=== PATIENT | male | born 1980 | race Caucasian/White ===

== ENCOUNTER 2016-10-27 09:26 | Observation (INO) | payer SELFPAY ==
[2016-10-27] VITALS (7 sets, daily range): BP systolic 119–135; BP diastolic 70–75; PULSE 53–79; RESP 16–20; TEMP 98.1–98.6; O2SAT 97–98
[~2016-10-27] VITALS: Ht 182.9 cm; Wt 129.0 kg
[~2016-10-27 09:26] MED LIST: LISI-587 PO
[2016-10-27] MEDS ORDERED: ASPIRIN 81 MG CHEW TAB PO ONE (09:45)
[2016-10-27] MEDS ORDERED: SODIUM CHLOR 0.9% 1000 ML INJ 1,000 ML IV ONE (09:45)
[2016-10-27] MEDS ORDERED: SODIUM CHLORIDE 0.9% FLUSH 10 ML FLUSH IVF PRN (09:45)
--- NOTE | 2016-10-27 09:48 | PD ---
HPI Chief Complaint: chest pain Time Seen by Provider: 09:37 Travel History International Travel<30 days: No Contact w/Intl Traveler<30days: No History of Present Illness HPI Patient is a 36-year-old male with history of hypertension, hyperlipidemia, coronary disease, history of NV when he was 24 years old, ho presents to emergency with complaints of chest pain. Patient reports that he began to have chest pain around 2 AM this morning. Patient reports that the chest pain is located to his left chest, reports that it is sharp and stabbing and radiates to his back. Patient reports that it difficult for him to take a deep breath this chest pain. Reports that he felt short of breath and diaphoretic with the symptoms. Patient denies any nausea or vomiting, he has history of NV in the past. Patient reports that the symptoms got better throughout the morning, reports that he went to work and had return of chest pain and shortness of breath and decided to come to the emergency room. Patient did take a baby aspirin this morning along with all his antihypertensives. 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 Patient reports that he has never had a cardiac catheter, reports that he was told that he has mitral as well as tricuspid valve regurgitation. Patient also reports strong family history of NV, reports that his father had 13 MIs as well as 9 CVAs in the past. 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) High Cholesterol: Yes Chest Pain: Yes Diminished Hearing: No Hypertension: Yes Past Surgical History Surgical History: No Previous Surgery Family History Family Myocardial Infarction: Yes Family Hypercholesterolemia: Yes Social History Alcohol Use: No Tobacco Use: No Substance Use: No Allergies-Medications (Allergen,Severity, Reaction): Coded Allergies: Zithromax (Unverified Allergy, Unknown, TOLD CHILD, 08/15/14) Reported Meds & Prescriptions Reported Meds & Active Scripts Active Zestoretic 20/25 (Lisinopril/Hctz 20 mg/25 mg) 20 mg/25 mg Tab 1 Tab PO DAILY 30 Days Review of Systems General / Constitutional: No: Fever Eyes: No: Visual changes HENT: No: Headaches Cardiovascular: Positive: Chest Pain or Discomfort, Diaphoresis Respiratory: Positive: Shortness of Breath Gastrointestinal: No: Abdominal Pain Genitourinary: No: Dysuria Musculoskeletal: No: Pain Skin: No Rash Neurologic: No: Weakness Psychiatric: No: Depression Endocrine: No: Polydipsia Hematologic/Lymphatic: No: Easy Bruising Physical Exam Narrative GENERAL: No acute distress, nontoxic SKIN: Focused skin assessment warm/dry. HEAD: Atraumatic. Normocephalic. EYES: Pupils equal and round. No scleral icterus. No injection or drainage. ENT: No nasal bleeding or discharge. Mucous membranes pink and moist. NECK: Trachea midline. No JVD. CARDIOVASCULAR: Regular rate and rhythm. No murmur appreciated. RESPIRATORY: No accessory muscle use. Clear to auscultation. Breath sounds equal bilaterally. GASTROINTESTINAL: Abdomen soft, non-tender, nondistended. Hepatic and splenic margins not palpable. MUSCULOSKELETAL: No obvious deformities. No clubbing. No cyanosis. No edema. NEUROLOGICAL: Awake and alert. No obvious cranial nerve deficits. Motor grossly within normal limits. Normal speech. PSYCHIATRIC: Appropriate mood and affect; insight and judgment normal. Data Data Last Documented VS Vital Signs Date Time Temp Pulse Resp B/P Pulse Ox O2 Delivery O2 Flow Rate FiO2 10/27/16 09:44 73 132/70 Room Air 10/27/16 09:44 97 10/27/16 09:41 20 10/27/16 09:30 98.2 Orders B-Type Natriuretic Peptide (10/27/16 09:39) Ckmb (Isoenzyme) Profile (10/27/16 09:39) Complete Blood Count With Diff (10/27/16 09:39) Comprehensive Metabolic Panel (10/27/16 09:39) D-Dimer (10/27/16 09:39) Magnesium (Mg) (10/27/16 09:39) Prothrombin Time / Inr (Pt) (10/27/16 09:39) Act Partial Throm Time (Ptt) (10/27/16 09:39) Troponin I (10/27/16 09:39) Lipase (10/27/16 09:39) Chest, Single Ap (10/27/16 09:39) Ecg Monitoring (10/27/16 09:39) Bilateral Bp Monitoring (10/27/16 09:39) Iv Access Insert/Monitor (10/27/16 09:39) Oximetry (10/27/16 09:39) Aspirin Chew (Aspirin Chew) (10/27/16 09:45) Sodium Chloride 0.9% Flush (Ns Flush) (10/27/16 09:45) Nitroglycerin Sl (Nitrostat Sl) (10/27/16 09:45) Sodium Chlor 0.9% 1000 Ml Inj (Ns 1000 M (10/27/16 09:45) Ct Pulmonary Angiogram (10/27/16 10:31) CKMB (10/27/16 09:50) CKMB% (10/27/16 09:50) Iohexol 350 Inj (Omnipaque 350 Inj) (10/27/16 11:45) Labs Laboratory Tests Test 10/27/16 09:50 White Blood Count 5.0 TH/MM3 Red Blood Count 5.00 MIL/MM3 Hemoglobin 15.1 GM/DL Hematocrit 44.0 % Mean Corpuscular Volume 88.0 FL Mean Corpuscular Hemoglobin 30.3 PG Mean Corpuscular Hemoglobin 34.4 % Concent Red Cell Distribution Width 13.1 % Platelet Count 163 TH/MM3 Mean Platelet Volume 9.2 FL Neutrophils (%) (Auto) 54.4 % Lymphocytes (%) (Auto) 28.8 % Monocytes (%) (Auto) 15.3 % Eosinophils (%) (Auto) 1.2 % Basophils (%) (Auto) 0.3 % Neutrophils # (Auto) 2.7 TH/MM3 Lymphocytes # (Auto) 1.4 TH/MM3 Monocytes # (Auto) 0.8 TH/MM3 Eosinophils # (Auto) 0.1 TH/MM3 Basophils # (Auto) 0.0 TH/MM3 CBC Comment DIFF FINAL Differential Comment Prothrombin Time 10.7 SEC Prothromb Time International 1.0 RATIO Ratio Activated Partial 27.3 SEC Thromboplast Time D-Dimer Quantitative (PE/DVT) 0.52 MG/L FEU Sodium Level 138 MEQ/L Potassium Level 3.7 MEQ/L Chloride Level 106 MEQ/L Carbon Dioxide Level 24.7 MEQ/L Anion Gap 7 MEQ/L Blood Urea Nitrogen 16 MG/DL Creatinine 0.90 MG/DL Estimat Glomerular Filtration 96 ML/MIN Rate Random Glucose 147 MG/DL Calcium Level 8.8 MG/DL Magnesium Level 2.1 MG/DL Total Bilirubin 0.3 MG/DL Aspartate Amino Transf 39 U/L (AST/SGOT) Alanine Aminotransferase 83 U/L (ALT/SGPT) Alkaline Phosphatase 70 U/L Total Creatine Kinase 108 U/L Creatine Kinase MB 3.1 NG/ML Troponin I LESS THAN 0.02 NG/ML B-Type Natriuretic Peptide 13 PG/ML Total Protein 7.2 GM/DL Albumin 3.6 GM/DL Lipase 127 U/L MDM Medical Decision Making Medical Screen Exam Complete: Yes Emergency Medical Condition: Yes Interpretation(s) EKG at 0936: No sinus rhythm at 63 bpm, QT/QTc 396/403, no acute ST or T-wave changes Differential Diagnosis Differential includes ACS, arrhythmia, PE, aortic dissection, electrolyte abnormality, pneumothorax Narrative Course 36-year-old male who presents to emergency room with complaints of chest pain. Patient reports that he has history of coronary artery disease, he has never had a cardiac catheterization in the past. Reports history of hypertension, hyperlipidemia, he does take a baby aspirin today and did take all of his medications today. Patient reports that chest began around 2 AM this morning and has been persistent but less severe. Patient was placed on a radiographer cardiac catheterization upon arrival to the emergency room. Lab work including cardiac enzymes ordered. X-ray chest ordered. Sublingual nitroglycerin ordered to see if this helps with his chest pain symptoms. Patient with resolution of chest pain after 1 sl nitro Vital Signs Date Time Temp Pulse Resp B/P Pulse Ox O2 Delivery O2 Flow Rate FiO2 10/27/16 09:44 73 132/70 Room Air 10/27/16 09:44 97 Room Air 10/27/16 09:41 73 20 132/70 97 Room Air 10/27/16 09:30 98.2 73 20 132/70 97 Laboratory Tests Test 10/27/16 09:50 White Blood Count 5.0 TH/MM3 (4.0-11.0) Red Blood Count 5.00 MIL/MM3 (4.50-5.90) Hemoglobin 15.1 GM/DL (13.0-17.0) Hematocrit 44.0 % (39.0-51.0) Mean Corpuscular Volume 88.0 FL (80.0-100.0) Mean Corpuscular Hemoglobin 30.3 PG (27.0-34.0) Mean Corpuscular Hemoglobin 34.4 % Concent (32.0-36.0) Red Cell Distribution Width 13.1 % (11.6-17.2) Platelet Count 163 TH/MM3 (150-450) Mean Platelet Volume 9.2 FL (7.0-11.0) Neutrophils (%) (Auto) 54.4 % (16.0-70.0) Lymphocytes (%) (Auto) 28.8 % (9.0-44.0) Monocytes (%) (Auto) 15.3 % (0.0-8.0) Eosinophils (%) (Auto) 1.2 % (0.0-4.0) Basophils (%) (Auto) 0.3 % (0.0-2.0) Neutrophils # (Auto) 2.7 TH/MM3 (1.8-7.7) Lymphocytes # (Auto) 1.4 TH/MM3 (1.0-4.8) Monocytes # (Auto) 0.8 TH/MM3 (0-0.9) Eosinophils # (Auto) 0.1 TH/MM3 (0-0.4) Basophils # (Auto) 0.0 TH/MM3 (0-0.2) CBC Comment DIFF FINAL Differential Comment Prothrombin Time 10.7 SEC (9.8-11.6) Prothromb Time International 1.0 RATIO Ratio Activated Partial 27.3 SEC Thromboplast Time (24.3-30.1) D-Dimer Quantitative (PE/DVT) 0.52 MG/L FEU (0.00-0.50) Sodium Level 138 MEQ/L (136-145) Potassium Level 3.7 MEQ/L (3.5-5.1) Chloride Level 106 MEQ/L (98-107) Carbon Dioxide Level 24.7 MEQ/L (21.0-32.0) Anion Gap 7 MEQ/L (5-15) Blood Urea Nitrogen 16 MG/DL (7-18) Creatinine 0.90 MG/DL (0.60-1.30) Estimat Glomerular Filtration 96 ML/MIN (>89) Rate Random Glucose 147 MG/DL (74-106) Calcium Level 8.8 MG/DL (8.5-10.1) Magnesium Level 2.1 MG/DL (1.5-2.5) Total Bilirubin 0.3 MG/DL (0.2-1.0) Aspartate Amino Transf 39 U/L (15-37) (AST/SGOT) Alanine Aminotransferase 83 U/L (12-78) (ALT/SGPT) Alkaline Phosphatase 70 U/L (45-117) Total Creatine Kinase 108 U/L (39-308) Creatine Kinase MB 3.1 NG/ML (0.5-3.6) Troponin I LESS THAN 0.02 NG/ML (0.02-0.05) B-Type Natriuretic Peptide 13 PG/ML (0-100) Total Protein 7.2 GM/DL (6.4-8.2) Albumin 3.6 GM/DL (3.4-5.0) Lipase 127 U/L (73-393) Last Impressions Chest X-Ray 10/27/16 0987 Signed Impressions: Service Date/Time: Thursday, October 27, 2016 09:47 - CONCLUSION: No acute disease. Isaac Rodriguez MD Patient with resolution of chest pain. Will obs to chest pain unit Diagnosis Primary Impression: Chest pain Qualified Code: R07.9 - Chest pain, unspecified type Admitting Information Admitting Physician Requests: Observation Aundrea Tomlinson DO Oct 27, 2016 09:48
[2016-10-27] MEDS: NITROGLYCERIN 0.4 MG SL 25 TABS/BTL SL SCH ×3 (09:55→10:26)
[2016-10-27 10:07] LABS: AUTOMATED NEUTROPHIL # 2.7 TH/MM3 (1.8-7.7); BASOPHIL % 0.3 % (0.0-2.0); EOSINOPHIL # 0.1 TH/MM3 (0-0.4); EOSINOPHIL % 1.2 % (0.0-4.0); HEMO FLAGS DIFF FINAL; LYMPH % 28.8 % (9.0-44.0); LYMPHOCYTE # 1.4 TH/MM3 (1.0-4.8); MEAN CORPUSCULAR HEMOGLOBIN 30.3 PG (27.0-34.0); MEAN CORPUSCULAR HGB CONC 34.4 % (32.0-36.0); MONO % 15.3 % (0.0-8.0); NEUT % 54.4 % (16.0-70.0); PLATELET COUNT 163 TH/MM3 (150-450); RED CELL DISTRIBUTION WIDTH 13.1 % (11.6-17.2)
--- NOTE | 2016-10-27 10:07 | RADRPT ---
EXAM DATE/TIME: 10/27/2016 09:47 [facility] COMPARISON: No previous studies available for comparison. INDICATIONS : Chest pain. MEDICAL HISTORY : Myocardial infarction. mitral and tricuspid regurgitation, high blood pressure ENCOUNTER: Initial ACUITY: 1 day PAIN SCORE: 2/10 LOCATION: Bilateral chest FINDINGS: A single view of the chest demonstrates the lungs to be symmetrically aerated without evidence of mas s, infiltrate or effusion. The cardiomediastinal contours are unremarkable. Osseous structures are intact. CONCLUSION: No acute disease. Isaac Rodriguez MD on October 27, 2016 at 10:05 Board Certified Radiologist. This report was verified electronically.
[2016-10-27 10:22] LABS: APTT (PATIENT) 27.3 SEC (24.3-30.1); PROTHROMBIN TIME - PATIENT 10.7 SEC (9.8-11.6)
[2016-10-27 10:29] LABS: ANION GAP 7 MEQ/L (5-15); AST (GOT) 39 U/L (15-37); BICARBONATE 24.7 MEQ/L (21.0-32.0); BLOOD UREA NITROGEN 16 MG/DL (7-18); CHLORIDE 106 MEQ/L (98-107); GLOMERULAR FILTRATION RATE 96 ML/MIN (>89); MAGNESIUM 2.1 MG/DL (1.5-2.5); POTASSIUM 3.7 MEQ/L (3.5-5.1); SODIUM (NA) 138 MEQ/L (136-145)
[2016-10-27 10:30] LABS: ALT (GPT) 83 U/L (12-78)
[2016-10-27 10:34] LABS: ALKALINE PHOSPHATASE 70 U/L (45-117); CREATINE KINASE 108 U/L (39-308); TOTAL BILIRUBIN ADULT 0.3 MG/DL (0.2-1.0)
[2016-10-27 10:47] LABS: CKMB 3.1 NG/ML (0.5-3.6)
[2016-10-27] MEDS ORDERED: IOHEXOL 350 MG/ML 10 ML VIAL (for RAD DIAG) IV ONE (11:45)
--- NOTE | 2016-10-27 11:55 | RADRPT ---
EXAM DATE/TIME: 10/27/2016 11:37 [facility] COMPARISON: No previous studies available for comparison. INDICATIONS : Sub sternal chest pain starting today IV CONTRAST: 74 cc Omnipaque 350 (iohexol) IV RADIATION DOSE: 23.18 CTDIvol (mGy) MEDICAL HISTORY : Cardiovascular disease. Hypertension. SURGICAL HISTORY : None. ENCOUNTER: Initial ACUITY: 1 day PAIN SCALE: 2/10 LOCATION: chest TECHNIQUE: Volumetric scanning of the chest was performed using a pulmonary embolism protocol MIP images were re constructed. Using automated exposure control and adjustment of the mA and/or kV according to patien t size, radiation dose was kept as low as reasonably achievable to obtain optimal diagnostic quality images. DICOM format image data is available electronically for review and comparison. Follow-up recommendations for incidentally detected pulmonary nodules are based at a minimum on nodul e size and patient risk factors according to Fleischner Society Guidelines. FINDINGS: PULMONARY ARTERIES: No filling defects are seen in the pulmonary arteries through the segmental level. LUNGS: Scattered posterior bibasilar atelectasis is noted. There is no alveolar consolidation or pneumothora x . Tiny calcified granulomas are noted bilaterally. No concerning pulmonary nodule is visualized. PLEURAE: There is no pleural thickening or pleural effusion. MEDIASTINUM: There is good visualization of the great vessels of the middle mediastinum. Cardiomegaly. No evidenc e of concerning mediastinal or hilar adenopathy/mass. Calcified granulomatous lymph nodes are noted w ithin the right hilum. MUSCULOSKELETAL: Within normal limits for patient age. MISCELLANEOUS: The visualized upper abdominal organs demonstrate no acute abnormality. CONCLUSION: 1. No evidence of pulmonary embolism. 2. Scattered posterior bibasilar atelectasis. 3. Cardiomegaly. 4. Granulomatous changes within the lungs bilaterally and right hilum. Freddy Murillo MD on October 27, 2016 at 11:49 Board Certified Radiologist. This report was verified electronically.
[2016-10-27] MEDS ORDERED: ALPRAZolam 0.25 MG TAB PO PRN (14:30)
[2016-10-27] MEDS ORDERED: ONDANSETRON HCL 4 MG/2 ML VIAL IV PRN (14:30)
[2016-10-27] MEDS ORDERED: SODIUM CHLORIDE 0.9% FLUSH 10 ML FLUSH IV FLUSH PRN (14:30)
[2016-10-27] MEDS ORDERED: ACETAMINOPHEN 500 MG CPLT PO PRN (14:30)
[2016-10-27] MEDS ORDERED: ACETAMINOPHEN/HYDROcodone 325 MG/7.5 MG TAB PO PRN (14:30)
[2016-10-27 14:43] LABS: CREATINE KINASE 102 U/L (39-308)
--- NOTE | 2016-10-27 16:13 | HHI.HP ---
[facility] Primary Care Physician Jeff Luther DO Chief Complaint Chest pain History of Present Illness This is a 36-year-old male that presents to the ED via ambulance with a complaint of chest discomfort. He states he first had an episode about 2:00 this morning. It woke him up. Is a sharp stabbing discomfort to left side of his chest. It lasted 15-20 minutes. He had associated shortness of breath and diaphoresis no nausea. He went back to sleep. Then this morning he went to work. While he was at work he developed the same type discomfort. He was and 89 out of 10. He also felt weak. He decided drive home. His saw him and felt that he was pale. She called 911. He states he was having the discomfort as he arrived in the ED as a 2-3 out of 10. He was given subluminal nitroglycerin which resolved the discomfort and has not reoccurred. Patient states that he had a myocardial infarction he was 24 years of age. He states he was told it was a mild heart attack. Denies ever having a cardiac catheterization. States that he had a stress test about 11 years ago and that it was okay. 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 Review of Systems General: Patient denies fevers, chills recent, and recent travel HEENT: Patient denies headache, sore throat, difficulty swallowing. Cardiovascular: Has the chest discomfort as mentioned above. Denies sensation of heart beating rapidly or irregularly. No syncope. He was diaphoretic. Respiratory: He was short of breath. Denies inspirational chest discomfort. Denies coughing wheezing or hemoptysis. GI: Patient denies nausea, vomiting, diarrhea, abdominal pain, bloody stools. Musculoskeletal: Patient denies joint pain or edema. Denies calf pain or edema. Neurovascular: Patient denies numbness, tingling, weakness in extremities. Denies headache. Endocrine: Denies polyuria and polydipsia. Hematologic: Denies easy bruising. Skin: Denies rash or itching. Past Family Social History Allergies: Coded Allergies: Zithromax (Unverified Allergy, Unknown, TOLD CHILD, 08/15/14) Past Medical History Hypertension. States he had a myocardial infarction age 24. Denies hyperlipidemia and diabetes. Past Surgical History Denies prior surgeries. Reported Medications Reported Meds & Active Scripts Active Zestoretic (Lisinopril/Hctz 20 mg/25 mg) 20 mg/25 mg Tab 1 Tab PO DAILY 30 Days Active Ordered Medications Current Medications Medications (Trade) Dose Ordered Sig/Ilsa Route Start Time Stop Time Status Last Admin (NS Flush) 2 ml UNSCH PRN IV FLUSH 10/27/16 14:30 (NS Flush) 2 ml BID IV FLUSH 10/27/16 21:00 (Tylenol) 500 mg Q4H PRN PO 10/27/16 14:30 (Kent 7.5-325 Mg) 1 tab Q4H PRN PO 10/27/16 14:30 (Zofran Inj) 4 mg Q6H PRN IV 10/27/16 14:30 (Protonix) 40 mg DAILY PO 10/27/16 15:00 (Aspirin) 325 mg DAILY PO 10/28/16 09:00 (Xanax) 0.25 mg Q8H PRN PO 10/27/16 14:30 Non-Formulary Medication 1 tab DAILY PO 10/28/16 09:00 UNV Family History States his father has had multiple myocardial infarctions. Social History Patient is a nonsmoker. Denies illicit drugs. Has occasional alcohol. Physical Exam Vital Signs Vital Signs Date Time Temp Pulse Resp B/P Pulse Ox O2 Delivery O2 Flow Rate FiO2 10/27/16 15:49 98.6 53 16 119/70 97 10/27/16 14:37 98.6 53 16 119/70 97 10/27/16 14:07 123/72 97 10/27/16 09:44 73 132/70 Room Air 10/27/16 09:44 97 Room Air 10/27/16 09:41 73 20 132/70 97 Room Air 10/27/16 09:30 98.2 73 20 132/70 97 Physical Exam GENERAL: This is a well-nourished, well-developed patient, in no apparent distress. Patient speaks in clear complete sentences. Patient is pleasant. HEENT: Head is atraumatic and normocephalic. Neck is supple without lymphadenopathy and trachea is midline. No JVD or carotid bruits. CARDIOVASCULAR: Regular rate and rhythm without murmurs, gallops, or rubs. RESPIRATORY: Clear to auscultation. Breath sounds equal bilaterally. No wheezes , rales, or rhonchi. Chest wall is nontender. No use of accessory muscles. GASTROINTESTINAL: Abdomen is nontender, nondistended. Abdomen soft. No obvious pulsatile mass or bruit. No CVA tenderness. Strong femoral pulses bilaterally. Normal bowel sounds in all quadrants. MUSCULOSKELETAL: Patient is moving upper and lower extremities freely. No calf tenderness or edema, no Homans sign. Strong pulses in upper and lower extremities. NEUROLOGICAL: Patient is alert and oriented. Cranial nerves 2-12 are grossly intact. No focal deficits and speech is clear. SKIN: No rash and turgor is normal. Laboratory Laboratory Tests Test 10/27/16 10/27/16 09:50 13:55 White Blood Count 5.0 Red Blood Count 5.00 Hemoglobin 15.1 Hematocrit 44.0 Mean Corpuscular Volume 88.0 Mean Corpuscular Hemoglobin 30.3 Mean Corpuscular Hemoglobin 34.4 Concent Red Cell Distribution Width 13.1 Platelet Count 163 Mean Platelet Volume 9.2 Neutrophils (%) (Auto) 54.4 Lymphocytes (%) (Auto) 28.8 Monocytes (%) (Auto) 15.3 Eosinophils (%) (Auto) 1.2 Basophils (%) (Auto) 0.3 Neutrophils # (Auto) 2.7 Lymphocytes # (Auto) 1.4 Monocytes # (Auto) 0.8 Eosinophils # (Auto) 0.1 Basophils # (Auto) 0.0 CBC Comment DIFF FINAL Differential Comment Prothrombin Time 10.7 Prothromb Time International 1.0 Ratio Activated Partial 27.3 Thromboplast Time D-Dimer Quantitative (PE/DVT) 0.52 Sodium Level 138 Potassium Level 3.7 Chloride Level 106 Carbon Dioxide Level 24.7 Anion Gap 7 Blood Urea Nitrogen 16 Creatinine 0.90 Estimat Glomerular Filtration 96 Rate Random Glucose 147 Calcium Level 8.8 Magnesium Level 2.1 Total Bilirubin 0.3 Aspartate Amino Transf 39 (AST/SGOT) Alanine Aminotransferase 83 (ALT/SGPT) Alkaline Phosphatase 70 Total Creatine Kinase 108 102 Creatine Kinase MB 3.1 Troponin I LESS THAN 0.02 LESS THAN 0.02 B-Type Natriuretic Peptide 13 Total Protein 7.2 Albumin 3.6 Lipase 127 Result Diagram: 10/27/16 0950 10/27/16 0950 Imaging Last [address] Angiography 10/27/16 1031 Signed Impressions: Service Date/Time: Thursday, October 27, 2016 11:37 - CONCLUSION: 1. No evidence of pulmonary embolism. 2. Scattered posterior bibasilar atelectasis. 3. Cardiomegaly. 4. Granulomatous changes within the lungs bilaterally and right hilum. Freddy Murillo MD Chest X-Ray 10/27/16 0939 Signed Impressions: Service Date/Time: Thursday, October 27, 2016 09:47 - CONCLUSION: No acute disease. Isaac Rodriguez MD Course EKGs: First and EKGs are sinus rhythm without significant ST segment depressions or elevations. Assessment and Plan Assessment and Plan * Chest pain: Patient will continue to have serial cardiac enzymes and EKGs for ruling out purposes. He will be seen by Dr. Angulo cardiology in the chest pain center. He will likely spend the evening in the chest pain center and have a Jad protocol ETT if he rules out. He'll be discharged home if stress test is nonischemic with instructions to follow-up with his primary care physician. * Hypertension: Continue current medication. Patient is stable at this time. He is agreeable to this plan. Shyam Spivey Oct 27, 2016 16:13
[2016-10-27] MEDS: PANTOPRAZOLE SOD 40 MG DELAYED RELEASE TAB PO SCH (16:15)
[2016-10-27 17:21] LABS: CREATINE KINASE 88 U/L (39-308)
[2016-10-27] MEDS: SODIUM CHLORIDE 0.9% FLUSH 10 ML FLUSH IV FLUSH SCH (21:00)
[2016-10-28 01:44] VITALS: BP 107/61; PULSE 64; RESP 20; TEMP 98.5; O2SAT 96
[2016-10-28 04:54] VITALS: BP 112/63; PULSE 64; RESP 20; TEMP 97.9; O2SAT 96
[2016-10-28 08:15] VITALS: BP 137/64; PULSE 58; RESP 20; TEMP 97.9; O2SAT 96
[2016-10-28] MEDS ORDERED: HYDROCHLOROTHIAZIDE 25 MG TAB PO SCH (09:00)
[2016-10-28] MEDS ORDERED: LISINOPRIL 20 MG TAB PO SCH (09:00)
[2016-10-28] MEDS ORDERED: ASPIRIN 325 MG TAB PO SCH (09:00)
[2016-10-28] MEDS: SODIUM CHLORIDE 0.9% FLUSH 10 ML FLUSH IV FLUSH SCH (09:02)
[2016-10-28] MEDS: PANTOPRAZOLE SOD 40 MG DELAYED RELEASE TAB PO SCH (09:03)
[2016-10-28 11:43] VITALS: BP 133/80; PULSE 68; RESP 22; TEMP 98; O2SAT 96
--- NOTE | 2016-10-28 12:07 | EKG ---
Date Performed: 10/27/2016 Time Performed: 09:36:45 PTAGE: 36 years EKG: Sinus rhythm NORMAL ECG PREVIOUS TRACING : 08/15/2014 15.17 Compared to prior tracing no significant change DOCTOR: Rell Camejo Interpretating Date/Time 10/28/2016 12:05:10
[2016-10-28 12:10] VITALS: PULSE 58
--- NOTE | 2016-10-28 12:19 | TR ---
Date Performed: 10/28/2016 Time Performed: 10:36:13 DOCTOR: Marcy Angulo DRUG LIST: CLINICAL HISTORY: CHEST PAIN REASON FOR TEST: REASON FOR ENDING: OBSERVATION: CONCLUSION: Jad protocol completed. Stopped sec to reaching target heart rate and leg fatigue. Maximum NT=488 Target HR Achieved=87.0% Maximum FG=092/82 Total Exercise Time=9:31. No reprod chest discomfort. Rare PVC. No st t segment changes to sugg ischemia. Good exercise tolerance. Normal bp re sponse. Recovery quick and unremarkable. Nuclear images pending. COMMENTS:
--- NOTE | 2016-10-28 12:19 | EKG ---
Date Performed: 10/27/2016 Time Performed: 17:25:52 PTAGE: 36 years EKG: SINUS BRADYCARDIA INCOMPLETE RIGHT BUNDLE BRANCH BLOCK NONSPECIFIC ST ELEVATION BORDERLINE ECG Since PREVIOUS TRACING , no significant change noted PREVIOUS TRACIN10/27/2016 15.18 DOCTOR: Marcy Angulo Interpretating Date/Time 10/28/2016 12:17:36
--- NOTE | 2016-10-28 12:20 | EKG ---
Date Performed: 10/27/2016 Time Performed: 15:18:43 PTAGE: 36 years EKG: SINUS BRADYCARDIA POSSIBLE RIGHT VENTRICULAR CONDUCTION DELAY BORDERLINE ECG Since PREVIOUS TRACING , no significant change noted PREVIOUS TRACIN10/27/2016 09.36 DOCTOR: Marcy Angulo Interpretating Date/Time 10/28/2016 12:18:03
--- NOTE | 2016-10-28 13:10 | RADRPT ---
EXAM DATE/TIME: 10/28/2016 09:35 [facility] COMPARISON: CT PULMONARY ANGIOGRAM, October 27, 2016, 11:37. INDICATIONS : Left chest pain. Angina Myocardial infraction. DOSE: 35 mCi Tc99m Myoview at stress 11 mCi Tc99m Myoview at rest REST HEART RATE: 67 BPM TARGET HEART RATE: 157 BPM MAX HEART RATE: 161 BPM REST BLOOD PRESSURE: 130/82 mmHg MAX BLOOD PRESSURE: 152/76 mmHg EJECTION FRACTION: 53% MEDICAL HISTORY : Hypertension. Hypercholesterolemia. SURGICAL HISTORY : None. ENCOUNTER: Initial ACUITY: 2 days PAIN SCALE: 3/10 LOCATION: Left chest TECHNIQUE: The patient underwent upright treadmill exercise in the chest pain center. Continuous ECG tracing wa s monitored during stress. Gated SPECT imaging was performed after stress, and conventional SPECT im aging was performed at rest. The examination was performed on a SPECT/CT scanner, both attenuation-c orrected and non-corrected datasets were reviewed. FINDINGS: DISTRIBUTION: The maximum perfused segment at stress is in the posterior basal wall. PERFUSION STUDY: The pattern of perfusion at stress is within normal limits. GATED STUDY: There is intact wall motion and thickening without hypokinetic or dyskinetic segments. CONCLUSION: Normal examination. RISK CATEGORY: Low (<1% Annual Mortality Rate) Isaac Rodriguez MD on October 28, 2016 at 13:05 Board Certified Radiologist. This report was verified electronically.
[2016-10-28] MEDS ORDERED: OMEP20TA PO (13:31)
--- NOTE | 2016-10-28 13:31 | HHI.DCPOC ---
Discharge Care Plan Diagnosis: (1) Atypical chest pain (2) GERD (gastroesophageal reflux disease) Goals to Promote Your Health * To prevent worsening of your condition and complications * To maintain your health at the optimal level Directions to Meet Your Goals Take your medications as prescribed Follow your dietary instruction Follow activity as directed Keep your appointments as scheduled Take your immunizations and boosters as scheduled If your symptoms worsen call your PCP, if no PCP go to Urgent Care Center or Emergency Room Smoking is Dangerous to Your Health. Avoid second hand smoke Call the 24-hour hour crisis hotline for domestic abuse at Patricia Johnson Oct 28, 2016 13:31
== END 2016-10-28 17:11 | disposition home or self-care (01) ==
LOC: NEPC 09:26 → NEDA 12:02 → NEPGCP 14:07
PROVIDERS: ADMIT Internal Medicine Interventional Cardiology; ATTEND Internal Medicine Interventional Cardiology
DX: R07.89 Other chest pain (principal); K21.9 Gastro-esophageal reflux disease without esophagitis; R06.02 Shortness of breath; R61 Generalized hyperhidrosis; I25.2 Old myocardial infarction; I10 Essential (primary) hypertension; I45.10 Unspecified right bundle-branch block; R00.1 Bradycardia, unspecified
CPT/HCPCS: 71010; 71275; 78452; 80053; 82550; 82552; 83690; 83735; 83880; 84484; 85025; 85379; 85610; 85730; 93005; 93017; 96360; 99285; A9502; G0378; J7030; Q9967

== ENCOUNTER 2016-11-09 13:56 | Emergency (ER) | payer SELFPAY ==
[~2016-11-09] VITALS: Ht 182.9 cm; Wt 125.7 kg
[~2016-11-09 13:56] MED LIST changes: +OMEP20TA PO
[2016-11-09 14:06] VITALS: BP 151/91; PULSE 60; RESP 20; TEMP 97.8; O2SAT 98
[2016-11-09] MEDS ORDERED: SODIUM CHLOR 0.9% 1000 ML INJ 1,000 ML IV SCH (14:34)
[2016-11-09 14:40] VITALS: O2SAT 96
--- NOTE | 2016-11-09 14:41 | PD ---
HPI Chief Complaint: Flank/Kidney Pain Time Seen by Provider: 14:28 Travel History International Travel<30 days: No Contact w/Intl Traveler<30days: No Traveled to known affect area: No History of Present Illness HPI The patient is a 36-year-old male who presents emergency department for right flank pain. The patient states he developed right flank pain 20 minutes prior to arrival. The pain is located in the right flank and radiates to the right mid back. He denies any radiation of the pain into the scrotum or testicles. He denies any associated dysuria, frequency, or urgency. He denies any nausea, vomiting, diarrhea, or change in bowel habits. Symptoms are moderate, the pain is described as sharp, constant, without any alleviating factors. The pain is slightly worse with sitting upright. He denies any history of nephrolithiasis. He denies any assisted fever, chills, or sweats. The patient took 2 Tylenol prior to arrival without any alleviation of his symptoms. 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) Cardiac Catheterization: No Cardiovascular Problems: Yes (heart attack) High Cholesterol: Yes Chest Pain: Yes Diabetes: No Diminished Hearing: No Hypertension: Yes ?: Not Past Surgical History Coronary Artery Bypass Graft: No Family History Family Hypercholesterolemia: Yes Social History Alcohol Use: Yes (SELDOM) Tobacco Use: No Substance Use: No Allergies-Medications (Allergen,Severity, Reaction): Coded Allergies: Zithromax (Unverified Allergy, Unknown, TOLD CHILD, 11/09/16) Reported Meds & Prescriptions Reported Meds & Active Scripts Active Flomax (Tamsulosin HCl) 0.4 Mg Cap 0.4 Mg PO HS 7 Days [place] (Hydrocodone-Acetaminophen) 5-325 mg Tab 1 Tab PO Q6H PRN Ibuprofen 600 Mg Tab 600 Mg PO Q6H PRN Omeprazole 20 Mg Tab 20 Mg PO DAILY Zestoretic 20/25 (Lisinopril/Hctz 20 mg/25 mg) 20 mg/25 mg Tab 1 Tab PO DAILY 30 Days Reported Aspirin 81 (Aspirin) 81 Mg Tabdr 81 Mg PO DAILY Review of Systems Except as stated in HPI: all other systems reviewed are Neg General / Constitutional: No: Fever Cardiovascular: No: Chest Pain or Discomfort Respiratory: No: Shortness of Breath Gastrointestinal: No: Nausea, Vomiting, Abdominal Pain Genitourinary: Positive: Flank Pain, No: Urgency, Frequency, Dysuria, Hematuria Skin: No Rash Physical Exam Narrative GENERAL: Awake, alert, pleasant 36-year-old male who appears his stated age and is in no acute respiratory distress. SKIN: Focused skin assessment warm/dry. HEAD: Atraumatic. Normocephalic. EYES: Pupils equal and round. No scleral icterus. No injection or drainage. ENT: No nasal bleeding or discharge. Mucous membranes pink and moist. NECK: Trachea midline. No JVD. CARDIOVASCULAR: Regular rate and rhythm. No murmur appreciated. RESPIRATORY: No accessory muscle use. Clear to auscultation. Breath sounds equal bilaterally. GASTROINTESTINAL: Abdomen soft, mild left flank tenderness. Back: Mild left CVA tenderness. MUSCULOSKELETAL: No obvious deformities. No clubbing. No cyanosis. No edema. NEUROLOGICAL: Awake and alert. No obvious cranial nerve deficits. Motor grossly within normal limits. Normal speech. PSYCHIATRIC: Appropriate mood and affect; insight and judgment normal. Data Data Last Documented VS Vital Signs Date Time Temp Pulse Resp B/P Pulse Ox O2 Delivery O2 Flow Rate FiO2 11/09/16 14:06 97.8 60 20 151/91 98 Orders Complete Blood Count With Diff (11/09/16 14:34) Comprehensive Metabolic Panel (11/09/16 14:34) Lipase (11/09/16 14:34) Urinalysis - C+S If Indicated (11/09/16 14:34) Ct Abd/Pel W/O Iv Contrast (11/09/16 14:34) Iv Access Insert/Monitor (11/09/16 14:34) Ecg Monitoring (11/09/16 14:34) Oximetry (11/09/16 14:34) Morphine Inj (Morphine Inj) (11/09/16 14:45) Ondansetron Inj (Zofran Inj) (11/09/16 14:45) Sodium Chlor 0.9% 1000 Ml Inj (Ns 1000 M (11/09/16 14:34) Sodium Chloride 0.9% Flush (Ns Flush) (11/09/16 14:45) Ketorolac Inj (Toradol Inj) (11/09/16 14:45) Morphine Inj (Morphine Inj) (11/09/16 15:30) Labs Laboratory Tests Test 11/09/16 11/09/16 14:40 14:50 White Blood Count 7.1 TH/MM3 Red Blood Count 5.12 MIL/MM3 Hemoglobin 15.0 GM/DL Hematocrit 45.0 % Mean Corpuscular Volume 87.8 FL Mean Corpuscular Hemoglobin 29.3 PG Mean Corpuscular Hemoglobin 33.3 % Concent Red Cell Distribution Width 12.0 % Platelet Count 203 TH/MM3 Mean Platelet Volume 8.1 FL Neutrophils (%) (Auto) 69.4 % Lymphocytes (%) (Auto) 16.5 % Monocytes (%) (Auto) 12.6 % Eosinophils (%) (Auto) 0.5 % Basophils (%) (Auto) 1.0 % Neutrophils # (Auto) 4.9 TH/MM3 Lymphocytes # (Auto) 1.2 TH/MM3 Monocytes # (Auto) 0.9 TH/MM3 Eosinophils # (Auto) 0.0 TH/MM3 Basophils # (Auto) 0.1 TH/MM3 CBC Comment DIFF FINAL Differential Comment Sodium Level 139 MEQ/L Potassium Level 3.8 MEQ/L Chloride Level 105 MEQ/L Carbon Dioxide Level 27.7 MEQ/L Anion Gap 6 MEQ/L Blood Urea Nitrogen 22 MG/DL Creatinine 1.00 MG/DL Estimat Glomerular Filtration 85 ML/MIN Rate Random Glucose 120 MG/DL Calcium Level 8.8 MG/DL Total Bilirubin 0.4 MG/DL Aspartate Amino Transf 36 U/L (AST/SGOT) Alanine Aminotransferase 66 U/L (ALT/SGPT) Alkaline Phosphatase 83 U/L Total Protein 7.6 GM/DL Albumin 3.8 GM/DL Lipase 117 U/L Urine Collection Type CLEAN CATCH Urine Color LIGHT-BROWN Urine Turbidity SLIGHTY CLOUDY Urine pH 5.5 Urine Specific [place] 1.032 Urine Protein 100 mg/dL Urine Glucose (UA) NEG mg/dL Urine Ketones 15 mg/dL Urine Occult Blood LARGE Urine Nitrite NEG Urine Bilirubin NEG Urine Leukocyte Esterase NEG Urine RBC 50-99 /hpf Urine WBC 0-2 /hpf Microscopic Urinalysis Comment CULT NOT INDICATED MDM Medical Decision Making Medical Screen Exam Complete: Yes Emergency Medical Condition: Yes Medical Record Reviewed: Yes Interpretation(s) Laboratory Tests Test 11/09/16 11/09/16 14:40 14:50 White Blood Count 7.1 TH/MM3 Red Blood Count 5.12 MIL/MM3 Hemoglobin 15.0 GM/DL Hematocrit 45.0 % Mean Corpuscular Volume 87.8 FL Mean Corpuscular Hemoglobin 29.3 PG Mean Corpuscular Hemoglobin 33.3 % Concent Red Cell Distribution Width 12.0 % Platelet Count 203 TH/MM3 Mean Platelet Volume 8.1 FL Neutrophils (%) (Auto) 69.4 % Lymphocytes (%) (Auto) 16.5 % Monocytes (%) (Auto) 12.6 % Eosinophils (%) (Auto) 0.5 % Basophils (%) (Auto) 1.0 % Neutrophils # (Auto) 4.9 TH/MM3 Lymphocytes # (Auto) 1.2 TH/MM3 Monocytes # (Auto) 0.9 TH/MM3 Eosinophils # (Auto) 0.0 TH/MM3 Basophils # (Auto) 0.1 TH/MM3 CBC Comment DIFF FINAL Differential Comment Sodium Level 139 MEQ/L Potassium Level 3.8 MEQ/L Chloride Level 105 MEQ/L Carbon Dioxide Level 27.7 MEQ/L Anion Gap 6 MEQ/L Blood Urea Nitrogen 22 MG/DL Creatinine 1.00 MG/DL Estimat Glomerular Filtration 85 ML/MIN Rate Random Glucose 120 MG/DL Calcium Level 8.8 MG/DL Total Bilirubin 0.4 MG/DL Aspartate Amino Transf 36 U/L (AST/SGOT) Alanine Aminotransferase 66 U/L (ALT/SGPT) Alkaline Phosphatase 83 U/L Total Protein 7.6 GM/DL Albumin 3.8 GM/DL Lipase 117 U/L Urine Collection Type CLEAN CATCH Urine Color LIGHT-BROWN Urine Turbidity SLIGHTY CLOUDY Urine pH 5.5 Urine Specific [place] 1.032 Urine Protein 100 mg/dL Urine Glucose (UA) NEG mg/dL Urine Ketones 15 mg/dL Urine Occult Blood LARGE Urine Nitrite NEG Urine Bilirubin NEG Urine Leukocyte Esterase NEG Urine RBC 50-99 /hpf Urine WBC 0-2 /hpf Microscopic Urinalysis Comment CULT NOT INDICATED CT of the abdomen and pelvis reveals a 2 mm minimally obstructing stone in the proximal to mid right ureter. The stone is at the level of L2. Possible mass of the rectum. Nonemergent GI referral and colonoscopy are recommended. Differential Diagnosis Differential diagnosis includes nephrolithiasis, hydronephrosis, pyelonephritis , shingles, back strain, neuralgia, pancreatitis, atypical appendicitis, atypical biliary colic. Narrative Course IV was established, labs are drawn and sent, and the patient was placed on cardiac telemetry monitoring and continuous pulse oximetry monitoring. The patient was administered morphine, Toradol, Zofran, and IV fluids. UA was sent to lab. Noncontrast CT of the abdomen and pelvis was ordered to evaluate for possible nephrolithiasis/hydronephrosis. Laboratory evaluation reveals 50-99 RBCs and gross blood, otherwise unremarkable. Patient has hematuria, CT reveals nephrolithiasis. The patient was reevaluated at 3:20 PM, his pain was down to 5/10. Therefore, the patient was administered another dose of morphine 4 mg intravenously. The patient will be provided a strainer. He is advised to take the pain medications and Flomax as directed and follow-up with urology if symptoms persist. He will be provided a copy of his CT results and lab results at discharge. The patient has questionable wall thickening, mildly masslike of the rectum and is advised to follow-up with GI on an outpatient basis for possible colonoscopy. Diagnosis Primary Impression: Nephrolithiasis Patient Instructions: General Instructions Additional Instructions: Medications as directed. Follow-up with your primary physician. Return if symptoms worsen or progress. Please provide the patient a strainer at discharge. Please provide the patient a copy of his CT results and lab results at discharge. Med/Other Pt SpecificInfo: Prescription(s) given Scripts Tamsulosin (Flomax)0.4 Mg Cap0.4 Mg PO HS 7 Days Ref 0 Prov:Phil Newberry MD 11/09/16 Hydrocodone-Acetaminophen ([place])5-325 mg Tab1 Tab PO Q6H PRN (PAIN) #20 TAB Ref 0 Prov:Phil Newberry MD 11/09/16 Ibuprofen 600 Mg Upv760 Mg PO Q6H PRN (Pain/Inflammation) #20 TAB Ref 0 Prov:Phil Newberry MD 11/09/16 Disposition: 01 DISCHARGE HOME Condition: Stable Phil Newberry MD Nov 09, 2016 14:41
[2016-11-09] MEDS ORDERED: MORPHINE SULFATE 4 MG/ML INJ IV PUSH ONE ×2 (14:45→15:30)
[2016-11-09] MEDS ORDERED: SODIUM CHLORIDE 0.9% FLUSH 10 ML FLUSH IV FLUSH PRN (14:45)
[2016-11-09] MEDS ORDERED: ONDANSETRON HCL 4 MG/2 ML VIAL IVP ONE (14:45)
[2016-11-09] MEDS ORDERED: KETOROLAC TROMETHAMINE 30 MG/ML (IVP) VIAL IVP ONE (14:45)
[2016-11-09 15:01] LABS: CHLORIDE 105 MEQ/L (98-107); POTASSIUM 3.8 MEQ/L (3.5-5.1); SODIUM (NA) 139 MEQ/L (136-145)
[2016-11-09 15:05] LABS: ANION GAP 6 MEQ/L (5-15); BICARBONATE 27.7 MEQ/L (21.0-32.0); BLOOD UREA NITROGEN 22 MG/DL (7-18)
[2016-11-09 15:06] LABS: AUTOMATED NEUTROPHIL # 4.9 TH/MM3 (1.8-7.7); BASOPHIL # 0.1 TH/MM3 (0-0.2); EOSINOPHIL % 0.5 % (0.0-4.0); HEMO FLAGS DIFF FINAL; LYMPH % 16.5 % (9.0-44.0); LYMPHOCYTE # 1.2 TH/MM3 (1.0-4.8); MEAN CELL VOLUME 87.8 FL (80.0-100.0); MEAN CORPUSCULAR HEMOGLOBIN 29.3 PG (27.0-34.0); MEAN CORPUSCULAR HGB CONC 33.3 % (32.0-36.0); MONO % 12.6 % (0.0-8.0); NEUT % 69.4 % (16.0-70.0); PLATELET COUNT 203 TH/MM3 (150-450); RED BLOOD COUNT 5.12 MIL/MM3 (4.50-5.90); WHITE BLOOD COUNT 7.1 TH/MM3 (4.0-11.0)
[2016-11-09 15:07] LABS: ALT (GPT) 66 U/L (12-78); AST (GOT) 36 U/L (15-37)
[2016-11-09 15:08] LABS: GLOMERULAR FILTRATION RATE 85 ML/MIN (>89)
[2016-11-09 15:09] LABS: TOTAL BILIRUBIN ADULT 0.4 MG/DL (0.2-1.0)
[2016-11-09 15:10] LABS: ALKALINE PHOSPHATASE 83 U/L (45-117)
[2016-11-09] MEDS ORDERED: ASPI-110 PO (15:11)
[2016-11-09 15:16] LABS: BLOOD, URINE LARGE (NEG); GLUCOSE,URINE NEG (NEG); KETONE, URINE 15 mg/dL (NEG); NITRITE,URINE NEG (NEG); PH, URINE 5.5 (5.0-8.5)
[2016-11-09 15:21] LABS: METHOD OF COLLECTION CLEAN CATCH; URINE COLOR LIGHT-BROWN (YELLW/STRAW)
[2016-11-09 15:22] LABS: COMMENT (UR) CULT NOT INDICATED; CULTURE IF INDICATED CULT NOT INDICATED; WBC, URINE 0-2 /hpf (0-5)
[2016-11-09] MEDS ORDERED: TAMS5CAP PO (15:27)
[2016-11-09] MEDS ORDERED: NORC5TAB PO (15:27)
[2016-11-09] MEDS ORDERED: IBUP-232 PO (15:27)
--- NOTE | 2016-11-09 15:33 | RADRPT ---
EXAM DATE/TIME: 11/09/2016 15:02 [facility] COMPARISON: No previous studies available for comparison. INDICATIONS : Right flank pain. Evaluate for renal calculi. ORAL CONTRAST: No oral contrast ingested. RADIATION DOSE: 24.82 CTDIvol (mGy) MEDICAL HISTORY : Hypercholesterolemia. Hypertension. SURGICAL HISTORY : None. ENCOUNTER: Initial ACUITY: 1 day PAIN SCALE: 5/10 LOCATION: Right flank TECHNIQUE: Volumetric scanning of the abdomen and pelvis was performed. Using automated exposure control and ad justment of the mA and/or kV according to patient size, radiation dose was kept as low as reasonably achievable to obtain optimal diagnostic quality images. DICOM format image data is available electro nically for review and comparison. FINDINGS: LOWER LUNGS: The visualized lower lungs are clear. LIVER: Homogeneous density without lesion. There is no dilation of the biliary tree. No calcified gallston es. SPLEEN: Normal size without lesion. PANCREAS: Within normal limits. KIDNEYS: There is a 2 mm stone in the proximal to mid right ureter at the level of L2. There is minimal promin ence of the upper right ureter and the collecting systems. ADRENAL GLANDS: Within normal limits. VASCULAR: There is no aortic aneurysm. BOWEL/MESENTERY: Questionable wall thickening, mildly masslike, the rectum. There is focally prominent stool just upst ream which would tend to further support the possibility of a mass lesion. Normal appendix. ABDOMINAL WALL: Within normal limits. RETROPERITONEUM: There is no lymphadenopathy. BLADDER: No wall thickening or mass. REPRODUCTIVE: Within normal limits. INGUINAL: There is no lymphadenopathy or hernia. MUSCULOSKELETAL: No acute bony abnormality demonstrated. CONCLUSION: 1. 2 mm minimally obstructing stone of the proximal to mid right ureter. The stone is at the level of L2. I don't clearly see it on the initial parts department supervisor radiograph. 2. Possible mass of the rectum. Please see above. Nonemergent GI referral and colonoscopy are recomme nded. Isaac Lin MD on November 09, 2016 at 15:25 Board Certified Radiologist. This report was verified electronically.
[2016-11-09 15:35] VITALS: BP 123/68; PULSE 72; RESP 18; O2SAT 98
[2016-11-09] MEDS ORDERED: SIMV20TA PO (15:39)
[2016-11-09] MEDS ORDERED: VITA250T3 PO (15:40)
[2016-11-09 16:11] VITALS: BP 119/68
== END 2016-11-09 16:13 | disposition home or self-care (01) ==
LOC: PHED 13:56
DX: N20.0 Calculus of kidney (principal)
CPT/HCPCS: 74176; 80053; 81001; 83690; 85025; 96361; 96374; 96375; 96376; 99285; J1885; J2270; J2405; J7030

== ENCOUNTER 2016-12-09 08:52 | Emergency (ER) | payer OTHER ==
[~2016-12-09] VITALS: Ht 182.9 cm; Wt 85.0 kg
[~2016-12-09 08:52] MED LIST changes: +ASPI-110 PO; +IBUP-232 PO; +NORC5TAB PO; +SIMV20TA PO; +TAMS5CAP PO; +VITA250T3 PO
[2016-12-09 08:57] VITALS: BP 215/152; PULSE 126; RESP 24; O2SAT 95
[2016-12-09 09:01] VITALS: BP_SYST 184; BP_SYST 244; BP_DIAS 109; BP_DIAS 89; PULSE 79; RESP 26; TEMP 97.9; O2SAT 99
[2016-12-09] MEDS ORDERED: LISI-587 PO (09:08)
[2016-12-09] MEDS ORDERED: SODIUM CHLOR 0.9% 1000 ML INJ 1,000 ML IV SCH (09:22)
--- NOTE | 2016-12-09 09:27 | PD ---
HPI Chief Complaint: Chest Pain Time Seen by Provider: 09:22 Travel History International Travel<30 days: No Contact w/Intl Traveler<30days: No Traveled to known affect area: No History of Present Illness HPI 36-year-old male patient with previous MT, high cholesterol, hypertension, presents to the ER today for lower back pains or radiation up to the epigastric and chest region which she currently rates at a 10 out 10, nausea, vomiting. He denies any diarrhea, fevers, or any other symptoms. He denies any previous history of similar episodes. They do not know of any sick contacts. Modifying Factors: None Associated Signs & Symptoms: Back and chest pains, nausea and vomiting Risk Factors: None 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) Cardiac Catheterization: No Cardiovascular Problems: Yes High Cholesterol: Yes Chest Pain: Yes Diabetes: No Diminished Hearing: No Hypertension: Yes Seizures: Yes Tetanus Vaccination: > 5 Years Influenza Vaccination: No Past Surgical History Coronary Artery Bypass Graft: No Oral Surgery: Yes (wisdom teeth) Family History Family Myocardial Infarction: Yes (father at age 30s) Family Hypercholesterolemia: Yes Social History Alcohol Use: Yes (SELDOM) Tobacco Use: No Substance Use: No Allergies-Medications (Allergen,Severity, Reaction): Coded Allergies: erythromycin base (Verified Allergy, Intermediate, HIVES, 12/09/16) azithromycin (Unverified Allergy, Unknown, TOLD CHILD, 12/09/16) Reported Meds & Prescriptions Reported Meds & Active Scripts Active Ibuprofen 600 Mg Tab 600 Mg PO Q6H PRN Omeprazole 20 Mg Tab 20 Mg PO DAILY Reported Zestoretic (Lisinopril-Hctz) 20-25 Mg Tab 1 Tab PO DAILY Vitamin C (Ascorbic Acid) 250 Mg Tab 1,000 Mg PO BID Simvastatin 20 Mg Tab 20 Mg PO DAILY Aspirin 81 (Aspirin) 81 Mg Tabdr 81 Mg PO DAILY Review of Systems Except as stated in HPI: all other systems reviewed are Neg Physical Exam Narrative GENERAL: Well-developed young white male patient currently in moderate distress , vomiting in the ER. Awake and oriented 3. SKIN: Focused skin assessment warm/diaphoretic. HEAD: Atraumatic. Normocephalic. EYES: Pupils equal and round. No scleral icterus. No injection or drainage. ENT: No nasal bleeding or discharge. Mucous membranes pink and moist. NECK: Trachea midline. No JVD. Supple. CARDIOVASCULAR: Regular rate and rhythm. No murmur appreciated. Pulses are present and equal bilaterally. RESPIRATORY: No accessory muscle use. Clear to auscultation. Breath sounds equal bilaterally. GASTROINTESTINAL: Abdomen soft, upper abdominal tenderness without guarding or rebound, nondistended. Hepatic and splenic margins not palpable. MUSCULOSKELETAL: No obvious deformities. No clubbing. No cyanosis. No edema. NEUROLOGICAL: Awake and alert. No obvious cranial nerve deficits. Motor grossly within normal limits. Normal speech. PSYCHIATRIC: Appropriate mood and affect; insight and judgment normal. Data Data Last Documented VS Vital Signs Date Time Temp Pulse Resp B/P (MAP) Pulse Ox O2 Delivery O2 Flow Rate FiO2 12/09/16 10:00 20 12/09/16 09:04 65 100 Room Air 12/09/16 09:01 97.9 184/89 (120) Orders Orders Complete Blood Count With Diff (12/09/16 09:22) Comprehensive Metabolic Panel (12/09/16:) Lipase (12/09/16:22) Prothrombin Time / Inr (Pt) (12/09/16:22) Act Partial Throm Time (Ptt) (12/09/16 09:22) Urinalysis - C+S If Indicated (12/09/16:22) Ct Abd/Pel W Iv Contrast(Rout) (12/09/16 09:22) Iv Access Insert/Monitor (12/09/16 09:22) Ecg Monitoring (12/09/16:22) Oximetry (12/09/16:22) Morphine Inj (Morphine Inj) (12/09/16 09:30) Ondansetron Inj (Zofran Inj) (12/09/16 09:30) Sodium Chlor 0.9% 1000 Ml Inj (Ns 1000 M (12/09/16 09:22) Sodium Chloride 0.9% Flush (Ns Flush) (12/09/16 09:30) Ckmb (Isoenzyme) Profile (12/09/16 09:22) Troponin I (12/09/16 09:22) CKMB (12/09/16 09:35) CKMB% (12/09/16 09:35) Iohexol 350 Inj (Omnipaque 350 Inj) (12/09/16 11:11) Electrocardiogram (12/09/16 09:03) Labs Laboratory Tests Test 12/09/16 09:22 12/09/16 09:35 12/09/16 10:35 Prothrombin Time 10.7 SEC Prothromb Time International Ratio 1.0 RATIO Activated Partial Thromboplast Time 27.1 SEC White Blood Count 6.8 TH/MM3 Red Blood Count 5.47 MIL/MM3 Hemoglobin 16.4 GM/DL Hematocrit 48.6 % Mean Corpuscular Volume 88.9 FL Mean Corpuscular Hemoglobin 30.1 PG Mean Corpuscular Hemoglobin Concent 33.8 % Red Cell Distribution Width 13.1 % Platelet Count 216 TH/MM3 Mean Platelet Volume 8.7 FL Neutrophils (%) (Auto) 48.1 % Lymphocytes (%) (Auto) 39.2 % Monocytes (%) (Auto) 11.8 % Eosinophils (%) (Auto) 0.6 % Basophils (%) (Auto) 0.3 % Neutrophils # (Auto) 3.3 TH/MM3 Lymphocytes # (Auto) 2.7 TH/MM3 Monocytes # (Auto) 0.8 TH/MM3 Eosinophils # (Auto) 0.0 TH/MM3 Basophils # (Auto) 0.0 TH/MM3 CBC Comment DIFF FINAL Differential Comment Blood Urea Nitrogen 16 MG/DL Creatinine 1.11 MG/DL Random Glucose 146 MG/DL Total Protein 8.5 GM/DL Albumin 4.2 GM/DL Calcium Level 9.4 MG/DL Alkaline Phosphatase 90 U/L Aspartate Amino Transf (AST/SGOT) 29 U/L Alanine Aminotransferase (ALT/SGPT) 53 U/L Total Bilirubin 0.5 MG/DL Sodium Level 136 MEQ/L Potassium Level 3.6 MEQ/L Chloride Level 100 MEQ/L Carbon Dioxide Level 25.6 MEQ/L Anion Gap 10 MEQ/L Estimat Glomerular Filtration Rate 75 ML/MIN Total Creatine Kinase 120 U/L Creatine Kinase MB 2.5 NG/ML Troponin I LESS THAN 0.02 NG/ML Lipase 119 U/L Urine Color YELLOW Urine Turbidity CLEAR Urine pH 6.5 Urine Specific [place] 1.025 Urine Protein TRACE mg/dL Urine Glucose (UA) NEG mg/dL Urine Ketones NEG mg/dL Urine Occult Blood SMALL Urine Nitrite NEG Urine Bilirubin NEG Urine Urobilinogen LESS THAN 2.0 MG/DL Urine Leukocyte Esterase NEG Urine RBC 17 /hpf Urine WBC 1 /hpf Urine Mucus FEW /lpf Microscopic Urinalysis Comment CULT NOT INDICATED MDM Medical Decision Making Medical Screen Exam Complete: Yes Emergency Medical Condition: Yes Medical Record Reviewed: Yes Interpretation(s) EKG shows NSR, no ST elevation or depression, and no arrhythmias. No significant T-wave inversions. Laboratory Tests Test 12/09/16 09:22 12/09/16 09:35 12/09/16 10:35 Monocytes (%) (Auto) 11.8 % (0.0-8.0) Random Glucose 146 MG/DL (74-106) Total Protein 8.5 GM/DL (6.4-8.2) Estimat Glomerular Filtration Rate 75 ML/MIN (>89) Troponin I LESS THAN 0.02 NG/ML Urine Occult Blood SMALL (NEG) Urine RBC 17 /hpf (0-3) Urine Mucus FEW /lpf (OCC) Last 24 hours Impressions Abdomen/Pelvis CT 12/09/16921 Signed Impressions: Service Date/Time: Friday, December 09, 2016 10:54 - CONCLUSION: Tiny stone of the right ureterovesical junction causing mild obstructive uropathy including delayed nephrogram. I don't clearly see the stone on the initial bakery worker radiograph. sIaac Lin MD Differential Diagnosis Back and epigastric pains, nausea and vomiting: Gastroenteritis versus gastritis versus pancreatitis versus ACS versus obstruction Narrative Course Lab work shows blood in the urine and CAT scan shows a tiny right sided obstructive uropathy. At this point, symptoms are indicative of renal colic my plan would be to release him with symptomatic relief or pain and have him strain his urine. He should follow up with urology. Return for worsening in symptoms as needed. The plan has been discussed with him and he states understanding. Diagnosis Primary Impression: Renal colic on right side Med/Other Pt SpecificInfo: Prescription(s) given Scripts Ondansetron Odt (Zofran Odt) 4 Mg Tab 4 MG SL Q6HR Y for Nausea/Vomiting, #7 TAB 0 Refills Prov: Miller Bess MD 12/09/16 Hydrocodone-Acetaminophen (Lortab) 5-325 Mg Tab 1-2 TAB PO Q6H Y for PAIN, #15 TAB 0 Refills Prov: Miller Bess MD 12/09/16 Ibuprofen (Motrin Ib) 200 Mg Tablet 600 MG PO QID Y for PAIN SCALE 1 TO 10, #28 Prov: Miller Bess MD 12/09/16 Disposition: 01 DISCHARGE HOME Condition: Stable Miller Bess MD Dec 09, 2016 09:27
[2016-12-09] MEDS ORDERED: SODIUM CHLORIDE 0.9% FLUSH 10 ML FLUSH IV FLUSH PRN (09:30)
[2016-12-09] MEDS ORDERED: MORPHINE SULFATE 4 MG/ML INJ IV PUSH ONE (09:30)
[2016-12-09] MEDS ORDERED: ONDANSETRON HCL 4 MG/2 ML VIAL IVP ONE (09:30)
[2016-12-09 09:53] LABS: AUTOMATED NEUTROPHIL # 3.3 TH/MM3 (1.8-7.7); BASOPHIL % 0.3 % (0.0-2.0); EOSINOPHIL % 0.6 % (0.0-4.0); HEMATOCRIT 48.6 % (39.0-51.0); HEMO FLAGS DIFF FINAL; LYMPH % 39.2 % (9.0-44.0); LYMPHOCYTE # 2.7 TH/MM3 (1.0-4.8); MEAN CELL VOLUME 88.9 FL (80.0-100.0); MEAN CORPUSCULAR HEMOGLOBIN 30.1 PG (27.0-34.0); MEAN CORPUSCULAR HGB CONC 33.8 % (32.0-36.0); MONO % 11.8 % (0.0-8.0); NEUT % 48.1 % (16.0-70.0); PLATELET COUNT 216 TH/MM3 (150-450); RED BLOOD COUNT 5.47 MIL/MM3 (4.50-5.90); RED CELL DISTRIBUTION WIDTH 13.1 % (11.6-17.2); WHITE BLOOD COUNT 6.8 TH/MM3 (4.0-11.0)
[2016-12-09 10:00] VITALS: RESP 20
[2016-12-09 10:09] LABS: APTT (PATIENT) 27.1 SEC (24.3-30.1); PROTHROMBIN TIME - PATIENT 10.7 SEC (9.8-11.6)
[2016-12-09 10:15] LABS: ALKALINE PHOSPHATASE 90 U/L (45-117); ALT (GPT) 53 U/L (12-78); CREATINE KINASE 120 U/L (39-308); TOTAL BILIRUBIN ADULT 0.5 MG/DL (0.2-1.0)
[2016-12-09 10:21] LABS: ANION GAP 10 MEQ/L (5-15); AST (GOT) 29 U/L (15-37); BICARBONATE 25.6 MEQ/L (21.0-32.0); BLOOD UREA NITROGEN 16 MG/DL (7-18); CHLORIDE 100 MEQ/L (98-107); GLOMERULAR FILTRATION RATE 75 ML/MIN (>89); POTASSIUM 3.6 MEQ/L (3.5-5.1); SODIUM (NA) 136 MEQ/L (136-145)
[2016-12-09 10:27] LABS: CKMB 2.5 NG/ML (0.5-3.6)
[2016-12-09 10:48] LABS: BLOOD, URINE SMALL (NEG); COMMENT (UR) CULT NOT INDICATED; CULTURE IF INDICATED CULT NOT INDICATED; GLUCOSE,URINE NEG (NEG); KETONE, URINE NEG (NEG); MUCUS URINE FEW /lpf (OCC); NITRITE,URINE NEG (NEG); PH, URINE 6.5 (5.0-8.5); URINE COLOR YELLOW (YELLW/STRAW)
[2016-12-09] MEDS ORDERED: IOHEXOL 350 MG/ML 10 ML VIAL (for RAD DIAG) IVCONTRAST ONE (11:11)
--- NOTE | 2016-12-09 11:21 | RADRPT ---
EXAM DATE/TIME: 12/09/2016 10:54 [facility] COMPARISON: CT ABDOMEN & PELVIS W/O CONTRAST, November 09, 2016, 15:02. INDICATIONS : Lower abdominal pain and back pain. IV CONTRAST: 94 cc Omnipaque 350 (iohexol) IV ORAL CONTRAST: No oral contrast ingested. RADIATION DOSE: 12.55 CTDIvol (mGy) MEDICAL HISTORY : Hypertension. Cardiovascular disease SURGICAL HISTORY : None. ENCOUNTER: Initial ACUITY: 1 day PAIN SCALE: 10/10 LOCATION: lower back TECHNIQUE: Volumetric scanning of the abdomen and pelvis was performed. Using automated exposure control and ad justment of the mA and/or kV according to patient size, radiation dose was kept as low as reasonably achievable to obtain optimal diagnostic quality images. DICOM format image data is available electro nically for review and comparison. FINDINGS: LOWER LUNGS: The visualized lower lungs are clear. LIVER: Homogeneous density without lesion. There is no dilation of the biliary tree. No calcified gallston es. SPLEEN: Normal size without lesion. PANCREAS: Within normal limits. KIDNEYS: 2 x 2 x 3 mm stone seen at the right ureterovesical junction, presumably the same calculus that was s een in the proximal ureter on the comparison study. There is mild right hydronephrosis and hydrourete r. The right kidney is slightly swollen and has a delayed nephrogram relative to the left. No stones or obstruction of the left kidney. There is a subcentimeter cyst posteriorly at the lower pole. ADRENAL GLANDS: Within normal limits. VASCULAR: There is no aortic aneurysm. BOWEL/MESENTERY: The stomach, small bowel, and colon demonstrate no acute abnormality. There is no free intraperitone al air or fluid. ABDOMINAL WALL: Within normal limits. RETROPERITONEUM: There is no lymphadenopathy. BLADDER: No wall thickening or mass. REPRODUCTIVE: Within normal limits. INGUINAL: There is no lymphadenopathy or hernia. MUSCULOSKELETAL: No acute bony abnormality. CONCLUSION: Tiny stone of the right ureterovesical junction causing mild obstructive uropathy including delayed n ephrogram. 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 Isaac Lin MD on December 09, 2016 at 11:15 Board Certified Radiologist. This report was verified electronically.
[2016-12-09] MEDS ORDERED: HYDR-3533 PO (11:50)
[2016-12-09] MEDS ORDERED: ZOFR4TAB3 SL (11:50)
[2016-12-09] MEDS ORDERED: IBUP-1129 PO (11:50)
--- NOTE | 2016-12-09 13:57 | EKG ---
Date Performed: 12/09/2016 Time Performed: 09:03:02 PTAGE: 36 years EKG: Sinus rhythm NONSPECIFIC T-WAVE ABNORMALITY BORDERLINE ECG INTERPRETATION BASED ON A DEFAULT AGE OF 40 YEARS PREVIOUS TRACING : 10/27/2016 17.25 Rate has increased since prior tracing with nonspecif ic ST-T wave changes now being evident. Clinical correlation recommended. DOCTOR: Luis Lenz Interpretating Date/Time 12/09/2016 13:56:18
== END 2016-12-09 12:26 | disposition home or self-care (01) ==
LOC: NEPE 08:52
DX: N23 Unspecified renal colic (principal); R31.9 Hematuria, unspecified; N13.9 Obstructive and reflux uropathy, unspecified; R94.31 Abnormal electrocardiogram [ECG] [EKG]; I10 Essential (primary) hypertension; E78.00 Pure hypercholesterolemia, unspecified; I25.2 Old myocardial infarction; I07.1 Rheumatic tricuspid insufficiency; R56.9 Unspecified convulsions
CPT/HCPCS: 74177; 80053; 81001; 82550; 82552; 83690; 84484; 85025; 85610; 85730; 93005; 96361; 96374; 96375; 99285; J2270; J2405; J7030; Q9967